=== PATIENT | male | born 1970 | race Caucasian/White ===

== ENCOUNTER 2019-12-26 08:35 | Outpatient (REF) | payer OTHER, SELFPAY ==
[2019-12-26 11:10] LABS: Alanine Aminotransferase 26 U/L (0-40); Albumin Level 4.5 g/dL (3.5-5.0); Alkaline Phosphatase 50 U/L (39-117); Anion Gap 16 (12-20); Aspartate Amino Transferase 27 U/L (5-37); Bilirubin Total 0.7 mg/dL (0.0-1.0); Blood Urea Nitrogen 16 mg/dL (9-16); Calcium 9.1 mg/dL (8.4-10.2); Carbon Dioxide 24 mmol/L (22-29); Chloride 104 mmol/L (96-108); Cholesterol 217 mg/dL; Estimated Glomerular Filt Rate > 60; Glucose Fasting 86 mg/dL (60-99); HDL Cholesterol 80 mg/dL; LDL Cholesterol Calculated 126 mg/dl; Potassium 4.7 mmol/l (3.3-5.1); Sodium 139 mmol/L (135-145); Total Protein 7.3 g/dL (6.5-8.0); Triglycerides 56 mg/dL
== END 2019-12-26 08:36 | disposition home or self-care (01) ==
LOC: HO.10HDL 08:35
PROVIDERS: Visit Provider Internal Medicine
DX: E11.9 Type 2 diabetes mellitus without complications (principal)
CPT/HCPCS: 80053; 80061

== ENCOUNTER 2022-02-18 08:13 | Outpatient (REF) | payer OTHER, SELFPAY ==
[2022-02-18 08:23] LABS: MANUAL DIFF FLAG NO
[2022-02-18 08:36] LABS: Basophils Absolute Auto 0.1 X10*3/uL (0.0-0.2); Basophils Percent Auto 0.5 % (0-2); Eosinophils Percent Auto 0.2 % (0-4); Hematocrit 43.9 % (42.0-52.0); Hemoglobin 14.6 g/dl (14.0-18.0); Imm Gran Abs Auto 0.03 X10*3/uL (0.00-0.03); Imm Gran Pct Auto 0.3 % (0.0-0.4); Lymphocytes Absolute Auto 0.8 X10*3/uL (1.2-4.9); Lymphocytes Percent Auto 7.5 % (20-40); Mean Corpuscular HGB Conc 33.3 g/dl (31.0-36.0); Mean Corpuscular Hemoglobin 32.1 pg (27.0-33.0); Mean Corpuscular Volume 96.5 fL (80.0-98.0); Mean Platelet Volume 9.5 fL (9.4-12.4); Monocytes Absolute Auto 0.5 X10*3/uL (0.1-1.2); Monocytes Percent Auto 4.4 % (2-11); Neutrophils Absolute Auto 9.2 x10*3/uL (2.0-8.3); Neutrophils Percent Auto 87.1 % (45-73); Platelet Count 299 X10*3/uL (160-400); Red Blood Count 4.55 X10*6/uL (4.60-5.80); Red Cell Distribution Width 12.9 % (11.0-16.0); White Blood Count 10.6 X10*3/uL (4.8-10.8)
[2022-02-18 09:17] LABS: Alanine Aminotransferase 15 U/L (0-40); Albumin Level 4.4 g/dL (3.5-5.0); Alkaline Phosphatase 65 U/L (39-117); Anion Gap 15 (12-20); Aspartate Amino Transferase 17 U/L (5-37); Bilirubin Total 0.9 mg/dL (0.0-1.0); Blood Urea Nitrogen 27 mg/dL (9-16); Carbon Dioxide 26 mmol/L (22-29); Chloride 106 mmol/L (96-108); Cholesterol 207 mg/dL; Estimated Glomerular Filt Rate 53; Glucose Fasting 119 mg/dL (60-99); HDL Cholesterol 75 mg/dL; LDL Cholesterol Calculated 122 mg/dl; Potassium 4.8 mmol/L (3.3-5.1); Sodium 142 mmol/L (135-145); Total Protein 7.3 g/dL (6.5-8.0); Triglycerides 54 mg/dL
== END 2022-02-18 08:14 | disposition home or self-care (01) ==
LOC: HO.LAB 08:13
PROVIDERS: PCP Internal Medicine; Visit Provider Internal Medicine
DX: Z00.00 Encounter for general adult medical examination without abnormal findings (principal); Z13.0 Encounter for screening for diseases of the blood and blood-forming organs and certain disorders involving the immune mechanism
CPT/HCPCS: 36415; 80053; 80061; 85025

== ENCOUNTER 2022-07-17 09:30 | Outpatient (REF) | payer OTHER, SELFPAY ==
--- NOTE | ~2022-07-17 | XR_ITS ---
EXAMINATION: XR KNEE, LEFT CLINICAL INFORMATION: Pain COMPARISON: None available. TECHNIQUE: Two views of the left knee. FINDINGS: Bone alignment is normal. No fracture or dislocation. Normal joint spaces. Small joint effusion. Small well-corticated ossification in the inferior patellar tendon. Question soft tissue swelling of the patellar tendon and overlying anterior soft tissues. XR/XR knee LT 2V IMPRESSION: Small joint effusion. Question soft tissue swelling of the patellar tendon and adjacent soft tissues.
== END 2022-07-17 09:31 | disposition home or self-care (01) ==
LOC: HO.XRAY 09:30
PROVIDERS: PCP Internal Medicine; Visit Provider Internal Medicine
DX: M25.562 Pain in left knee (principal)
CPT/HCPCS: 73560

== ENCOUNTER 2022-08-31 12:51 | Outpatient (REF) | payer OTHER, SELFPAY ==
--- NOTE | ~2022-08-31 | XR_ITS ---
EXAMINATION: XR KNEE, LEFT XR KNEE STANDING, BILATERAL CLINICAL INFORMATION: Left knee pain. COMPARISON: 07/17/2022 TECHNIQUE: AP bilateral standing view of the knees was obtained. [place] view of the left knee obtained. FINDINGS: LEFT KNEE: Tiny tricompartmental osteophytes. Joint spaces are preserved. Previously questioned soft tissue swelling of the left patellar tendon and adjacent soft tissues is difficult to evaluate today as lateral view was not obtained. RIGHT KNEE: Single AP view of the right knee demonstrate tiny medial marginal osteophytes. A 7 mm ossicle in the soft tissues of the proximal to mid right lower leg. Heterogeneous sclerotic lesion in the distal shaft of the right femur on a single view should be evaluated with dedicated views of the right femur. XR/XR knee standing BI IMPRESSION: 1. Tiny left tricompartmental osteophytes. 2. Previously questioned soft tissue swelling of the left patellar tendon and adjacent soft tissues is difficult to evaluate today as lateral view was not obtained. 3. Heterogeneous sclerotic lesion in the distal shaft of the right femur on a single view should be evaluated with dedicated views of the right femur.
--- NOTE | ~2022-08-31 | XR_ITS ---
EXAMINATION: XR KNEE, LEFT XR KNEE STANDING, BILATERAL CLINICAL INFORMATION: Left knee pain. COMPARISON: 07/17/2022 TECHNIQUE: AP bilateral standing view of the knees was obtained. [place] view of the left knee obtained. FINDINGS: LEFT KNEE: Tiny tricompartmental osteophytes. Joint spaces are preserved. Previously questioned soft tissue swelling of the left patellar tendon and adjacent soft tissues is difficult to evaluate today as lateral view was not obtained. RIGHT KNEE: Single AP view of the right knee demonstrate tiny medial marginal osteophytes. A 7 mm ossicle in the soft tissues of the proximal to mid right lower leg. Heterogeneous sclerotic lesion in the distal shaft of the right femur on a single view should be evaluated with dedicated views of the right femur. XR/XR knee LT 1V IMPRESSION: 1. Tiny left tricompartmental osteophytes. 2. Previously questioned soft tissue swelling of the left patellar tendon and adjacent soft tissues is difficult to evaluate today as lateral view was not obtained. 3. Heterogeneous sclerotic lesion in the distal shaft of the right femur on a single view should be evaluated with dedicated views of the right femur.
== END 2022-08-31 12:52 | disposition home or self-care (01) ==
LOC: HO.HOSX 12:51
PROVIDERS: Visit Provider Physician Assistant
DX: S83.8X2A Sprain of other specified parts of left knee, initial encounter (principal)
CPT/HCPCS: 73560; 73565

== ENCOUNTER 2022-08-31 14:01 | Outpatient (AMB) | payer OTHER, SELFPAY ==
--- NOTE | 2022-08-31 14:14 | MHC.OFFVIS ---
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 Patient reports doing cross fit and when he was jump roping her felt his knee crumbled. He states that his pain is on the lateral aspect of the knee and has a burning sensation. Pain is worse when using the stairs and walking. Allergies No Known Allergies Allergy (Verified 08/31/22 14:21) HPI PRODUCT MARKETING SPECIALIST-Left knee pain HPI Details 51-year-old male who presents in the office today, as a new patient, for an evaluation of left knee pain. The patient reports in 06/2022 he injured the left knee. He claims he was doing cross fit when he was jumping rope and he felt his knee crumble. He states his pain is on the lateral aspect of the left knee with a burning sensation. He states his pain is worse with use of stairs and ambulation. He states he has not been able to do any exercising with his left lower extremity. He states the pain has not decreased at all. Patient reports his pain is along the lateral joint line. Patient confirms attending 2 sessions of physical therapy. [facility] Medical History Family history of colon cancer Surgical History History of colonoscopy History of wisdom tooth extraction Family History Father Colon cancer Mother Hyperlipidemia Maternal Uncle CAD (coronary artery disease) Sister Uterine cancer Social History (Updated 08/31/22 @ 14:23 by Usha Babin) Housing: House Alcohol intake: never Patient Tobacco Use Status: Never used Tobacco Tobacco use type: Cigarette e-Cigarette/Vaping Use: Never Used Second Hand Smoke Exposure: No service: No Current occupational status: employed Current occupation: sedentary work/ right hand dominant Cognitive needs: No Hearing needs: No Vision needs: No Review of Systems Const All systems reviewed & are unremarkable except as noted in HPI and below Physical Exam Vital Signs: BMI result Body Mass Index 29.5 Const General: cooperative, healthy appearing, comfortable, no acute distress, well developed and alert Orientation/consciousness: patient oriented x3 HEENT Head: Yes normal to inspection, Yes normocephalic and Yes atraumatic Eyes General: appearance normal, both eyes and all related structures Resp Effort & Inspection: normal respiratory effort and able to speak in complete sentences Cardio Rate: regular rate Peripheral pulses: Peripheral pulses 2+ throughout GI Palpation (GI): Soft to palpation Skin Lesions: no lesions Rashes: no rashes Neuro General: patient oriented x3 Extrem Other: Left knee: Normal to inspection. No ecchymosis, erythema, or joint effusion. No tenderness to palpation to the medial line. Tenderness to palpation to the lateral joint line. Full knee extension and flexion. Negative Jean's. Negative anterior draw. NVI. Assessment & Plan Assessment & Plan (1) Injury of meniscus of left knee: Code(s): S83.8X2A - Sprain of other specified parts of left knee, initial encounter Plan Mr. Chand is a 51-year-old male who presents in the office today, as a new patient, for an evaluation of left knee pain. The patient reports in 06/2022 he injured the left knee. He claims he was doing cross fit when he was jumping rope and he felt his knee crumble. He states his pain is on the lateral aspect of the left knee with a burning sensation. He states his pain is worse with use of stairs and ambulation. He states he has not been able to do any exercising with his left lower extremity. He states the pain has not decreased at all. Patient reports his pain is along the lateral joint line. Patient confirms attending 2 sessions of physical therapy. The patient will continue to work with physical therapy. I will place an order for an MRI for further evaluation and treatment. Follow up will be via telehealth once the MRI results have been review, or sooner if needed. X-rays of the left knee which were obtained while in the office today and were reviewed by me, Leesa Gonzáles PA-C, revealed no evidence of acute fractures or dislocation. Orders: Orders XR knee LT 1V 08/31/22 M25.569 - Pain in unspecified knee XR knee standing BI 08/31/22 M25.569 - Pain in unspecified knee MR knee LT wo con 08/31/22 S83.8X2A - Sprain of other specified parts of left knee, initial encounter Patient Instructions: Scribed for Leesa Gonzáles PA-C by Rosalinda El medical doctor nuclear medicine, on 08/31/2022 at 2:04 pm, EST. Your attestation Coding Level of Care Code New Pt Level 4 (89209) Diagnoses Injury of meniscus of left knee S83.8X2A
[2022-08-31 14:23] VITALS: BMI 29.5
== END 2022-08-31 14:58 | disposition home or self-care (01) ==
PROVIDERS: PCP Internal Medicine; Visit Provider Physician Assistant
DX: S83.8X2A Sprain of other specified parts of left knee, initial encounter (principal)
CPT/HCPCS: 99204

== ENCOUNTER 2022-09-18 10:12 | Day surgery (SDC) | payer OTHER, SELFPAY ==
--- NOTE | 2022-09-17 12:12 | HO.ANESPROP2 ---
HPI - Anesthesia Eval Consult details Narrative: 51yo M for Colonoscopy PMFSH Active Problems Active Problems: All Active Problems (Updated 08/31/22 @ 14:39 by Leesa Gonzáles PA-C) Injury of meniscus of left knee (Acute) Encounter for vasectomy counseling (Acute) Family history of colon cancer (Acute) Physical exam (Acute) Past Medical History Medical History Family history of colon cancer Family History Family History Father Colon cancer Mother Hyperlipidemia Maternal Uncle CAD (coronary artery disease) Sister Uterine cancer Surgical History Surgical History History of colonoscopy History of wisdom tooth extraction Social History Social History (Updated 08/31/22 @ 14:23 by Usha Babin) Housing: House Alcohol intake: never Patient Tobacco Use Status: Never used Tobacco Tobacco use type: Cigarette e-Cigarette/Vaping Use: Never Used Second Hand Smoke Exposure: No service: No Current occupational status: employed Current occupation: sedentary work/ right hand dominant Cognitive needs: No Hearing needs: No Vision needs: No Meds Allergies Allergy/AdvReac Type Severity Reaction Status Date / Time No Known Allergies Allergy Verified 08/31/22 14:21 Home Medications Medication Instructions Recorded Confirmed Last Taken Type No Known Home Meds 12/28/19 02/25/22 Unknown History Exam Exam Date and Time: September 17, 2022 1212 Assessment and Plan Assessment Anesthesia Assessment: Chart Reviewed
--- NOTE | 2022-09-18 10:09 | HO.ANESPROP2 ---
[facility] Active Problems Active Problems: All Active Problems (Updated 08/31/22 @ 14:39 by Leesa Gonzáles PA-C) Physical exam (Acute) Encounter for vasectomy counseling (Acute) Injury of meniscus of left knee (Acute) Family history of colon cancer (Acute) Past Medical History Medical History Family history of colon cancer Family History Family History Father Colon cancer Mother Hyperlipidemia Maternal Uncle CAD (coronary artery disease) Sister Uterine cancer Surgical History Surgical History (Updated 09/17/22 @ 12:53 by Geneva Jean RN) History of colonoscopy History of wisdom tooth extraction Hx of vasectomy Social History Social History (Updated 08/31/22 @ 14:23 by Usha Babin) Housing: House Alcohol intake: never Patient Tobacco Use Status: Never used Tobacco Tobacco use type: Cigarette e-Cigarette/Vaping Use: Never Used Second Hand Smoke Exposure: No service: No Current occupational status: employed Current occupation: sedentary work/ right hand dominant Cognitive needs: No Hearing needs: No Vision needs: No Meds Allergies Allergy/AdvReac Type Severity Reaction Status Date / Time No Known Allergies Allergy Verified 08/31/22 14:21 Active Medications: Current Medications Ondansetron HCl (Ondansetron Hcl 4 Mg/2 Ml Vial) 4 mg IVPUSH ONCE PRN PRN Reason: Nausea and Vomiting Home Medications Medication Instructions Recorded Confirmed Last Taken Type Fish Oil PO DAILY 09/17/22 Unknown History vitamin B complex 1 cap PO DAILY 09/17/22 09/17/22 Unknown History Exam Exam Date and Time: September 18, 2022 1006
--- NOTE | 2022-09-18 10:14 | P.CONAN_ITS ---
[facility] Active Problems Active Problems: All Active Problems (Updated 08/31/22 @ 14:39 by Leesa Gonzáles PA-C) Physical exam (Acute) Encounter for vasectomy counseling (Acute) Injury of meniscus of left knee (Acute) Family history of colon cancer (Acute) Past Medical History Medical History Family history of colon cancer Family History Family History Father Colon cancer Mother Hyperlipidemia Maternal Uncle CAD (coronary artery disease) Sister Uterine cancer Family history of problems with anesthesia: No Surgical History Surgical History (Updated 09/17/22 @ 12:53 by Geneva Jean RN) History of colonoscopy History of wisdom tooth extraction Hx of vasectomy History of Problems with Anesthesia: No Social History Social History (Updated 08/31/22 @ 14:23 by Usha Babin) Housing: House Alcohol intake: never Patient Tobacco Use Status: Never used Tobacco Tobacco use type: Cigarette e-Cigarette/Vaping Use: Never Used Second Hand Smoke Exposure: No service: No Current occupational status: employed Current occupation: sedentary work/ right hand dominant Cognitive needs: No Hearing needs: No Vision needs: No Meds Allergies Allergy/AdvReac Type Severity Reaction Status Date / Time No Known Allergies Allergy Verified 09/18/22 10:45 Active Medications: Current Medications Ondansetron HCl (Ondansetron Hcl 4 Mg/2 Ml Vial) 4 mg IVPUSH ONCE PRN PRN Reason: Nausea and Vomiting Home Medications Medication Instructions Recorded Confirmed Last Taken Type Fish Oil PO DAILY 09/17/22 09/16/22 History vitamin B complex 1 cap PO DAILY 09/17/22 09/17/22 09/16/22 History Exam Exam Date and Time: September 18, 2022 1014 Airway Mallampati Class: III TM Dist: >3cm Neck ROM: Full Loose/Missing/Broken Teeth: No (rrr) Lungs: clear Assessment and Plan Final Anesthetic Review Family History of Problems with Anesthesia: No History of Problems with Anesthesia: No NPO: Yes ASA Class: I Final Preanesthetic Review: No Changes in Pt Med Stat, Meds/Allgs Chart Reviewed, Consent Obtained/Reviewed and Anes Risks/Benef Reviewed Patient Risk: Low Procedure Risk: Low Anesthetic Plan Anesthetic Plan: MAC: Disposition: Standard PACU
[2022-09-18 10:47] VITALS: BMI 28.4
[2022-09-18 11:05] VITALS: BP 131/91; PULSE 62; RESP 15; TEMP 36.6; O2SAT 98
[2022-09-18] MEDS: Lactated Ringers 1,000 ML 100 ML IVCONT (11:10)
[2022-09-18 12:14] VITALS: BP 120/69; PULSE 81; RESP 17; TEMP 36.5; O2SAT 98
--- NOTE | 2022-09-18 12:14 | P.BOP_ITS ---
Brief Operative Note Date of Service: 09/18/22 Pre-op diagnosis: Screening Post-op diagnosis: other (Diverticulosis) Procedure: Colonoscopy to the cecum Surgeon: Hardik Dukes Anesthesia: MAC Was an Crew Leader/Control Room Operator used for this Procedure?: No Estimated blood loss (mL): 0 Pathology: none sent Condition: stable Disposition: PACU
[2022-09-18 12:30] VITALS: BP 112/63; PULSE 58; RESP 16; O2SAT 98
--- NOTE | 2022-09-18 12:35 | OP_ITS ---
DATE OF SERVICE: 09/18/2022 SURGEON: Hardik Dukes MD INDICATIONS: The patient presents for evaluation of colorectal cancer screening and family history of colon cancer. Full consent has been obtained from him for this, including risks of bleeding and perforation. PREOPERATIVE DIAGNOSIS: Colorectal cancer screening and family history of colon cancer. POSTOPERATIVE DIAGNOSIS: PROCEDURE PERFORMED: Colonoscopy to the cecum. ESTIMATED BLOOD LOSS: COMPLICATIONS: ANESTHESIA: Monitored anesthesia care. ASSISTANTS: SPECIMENS: POSTOPERATIVE DIAGNOSES: Colorectal cancer screening and family history of colon cancer, mild sigmoid diverticulosis, small internal hemorrhoids. DESCRIPTION OF PROCEDURE: The patient was placed in the left lateral decubitus position. The digital rectal exam revealed no abnormalities. The Olympus video pediatric colonoscope was entered into the rectum and advanced easily to the cecum. Once in the cecum, I did identify normal-appearing cecal pouch with appendiceal orifice and a normal-appearing ileocecal valve. The entire cecum and ileocecal valve appeared normal. The scope was slowly withdrawn assessing all mucosal surfaces carefully. Preparation was excellent. I did not visualize any sign of polyps, colitis, nor angiodysplasia. There was a mild amount of sigmoid diverticulosis. In the rectum, scope was retroflexed visualizing small internal hemorrhoids, but no other pathology. The rectal mucosa appeared normal. The scope was straightened and withdrawn from the patient. He tolerated the procedure well and was returned to the recovery area in stable condition. IMPRESSION: 1. Mild sigmoid diverticulosis. 2. Small internal hemorrhoids. PLAN: I would recommend a repeat colonoscopy in 5 years for further screening given the family history of colon cancer in his father in his 50s. He will otherwise see me on a p.r.n. basis. MD DANNY Aguilar/VISHNU / [phone]
[2022-09-18 12:46] VITALS: BP 128/79; PULSE 58; RESP 16; TEMP 36.3; O2SAT 98
== END 2022-09-18 13:25 | disposition home or self-care (01) ==
PROVIDERS: PCP Internal Medicine; Visit Provider Internal Medicine
PROC: 0DJD8ZZ Inspection of Lower Intestinal Tract, Via Natural or Artificial Opening Endoscopic (ICD-10-PCS; CPT 45378; principal; 2022-09-18 11:30)
DX: Z12.11 Encounter for screening for malignant neoplasm of colon (principal); Z80.0 Family history of malignant neoplasm of digestive organs; Z83.71 Family history of colonic polyps; K57.30 Diverticulosis of large intestine without perforation or abscess without bleeding; K64.8 Other hemorrhoids; Z98.52 Vasectomy status
CPT/HCPCS: 45378; J2250

== ENCOUNTER 2023-07-23 09:08 | Outpatient (AMB) | payer OTHER, SELFPAY ==
--- NOTE | 2023-07-23 09:09 | MHC.PC.OV ---
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 [place]: Not Required per policy Accompanied by: Self / Same As Patient Allergies No Known Allergies Allergy (Verified 07/23/23 09:11) Medication List - Last Reconciled 07/23/23 by Fadi Ingram MD [Fish Oil PO DAILY] vitamin B complex 1 cap PO DAILY Tobacco use date assessed: 07/23/23 Dental Screening Dental Screen Date: 07/23/23 Did you have a dental visit in the last 12 months?: Yes Did you have a dental problem in the last 6 months where you did not have access to dental care?: No Was dental information given to patient?: Patient has dentist HPI Annual Exam HPI Details healthy [facility] Medical History Family history of colon cancer Surgical History Hx of vasectomy History of colonoscopy History of wisdom tooth extraction Family History Father Colon cancer Mother Hyperlipidemia Maternal Uncle CAD (coronary artery disease) Sister Uterine cancer Social History (Updated 08/31/22 @ 14:23 by Usha Babin) Housing: House Alcohol intake: never Patient Tobacco Use Status: Never used Tobacco Tobacco use type: Cigarette e-Cigarette/Vaping Use: Never Used Second Hand Smoke Exposure: No service: No Current occupational status: employed Current occupation: sedentary work/ right hand dominant Cognitive needs: No Hearing needs: No Vision needs: No Questionnaire PHQ-9 Over the last 2 weeks, how often have you been bothered by any of the following problems? 1. Little interest or pleasure in doing things: not at all 2. Feeling down, depressed, or hopeless: not at all 3. Trouble falling or staying asleep, or sleeping too much: not at all 4. Feeling tired or having little energy: not at all 5. Poor appetite or overeating: not at all 6. Feeling bad about yourself - or that you are a failure or have let yourself or your family down: not at all 7. Trouble concentrating on things, such as reading the newspaper or watching television: not at all 8. Moving or speaking so slowly that other people could have noticed. Or the opposite - being so fidgety or restless that you have been moving around a lot more than usual: not at all 9. Thoughts that you would be better off or of hurting yourself in some way: not at all Total score: 0 Depression Screening Interpretation: Negative Depression Screening Done: Yes 88953 - PHQ-9 Billing: Yes Source: Developed by Drs. Hardik Shukla, Doreen Abebe, Horacio Haro and colleagues, with an educational rupal from [employer]. Thrive Questionnaire Date Thrive assessed: 07/23/23 I am a: Patient What is your living situation today?: I have a steady place to live Within the past 12 months, did the food you bought not last and you didn't have the money to get more?: Never true Within the past 12 months, did you worry whether your food would run out before you got money to buy more?: Never true Do you have trouble paying for medicines?: No Do you have trouble getting transportation to medical appointments?: No Do you have trouble paying your heating and electricity bill?: No Do you have trouble taking care of your child, family member or friend?: No Do you have trouble with day-to-day activities such as bathing, preparing meals, shopping, managing finances, etc.?: No Are you currently unemployed and looking for a job?: No Are you interested in more education?: No Please select the resources that you would like help with: None THRIVE Score: 0 AUDIT C Alcohol Use Questionnaire (AUDIT-C) 1. How often do you have a drink containing alcohol?: 2-3 times a week 2. How many drinks containing alcohol do you have on a typical day when you are drinking?: 1 or 2 3. How often do you have six or more drinks on one occasion?: Never Total Score: 3 Score Reviewed/Action Taken: Yes KATELIN-7 AMB Questionnaire KATELIN-7 Date KATELIN - 7 assessed: 07/23/23 Feeling nervous, anxious, or on edge: 0 = Not at all Not being able to stop or control worryin = Not at all Worrying too much about different things: 0 = Not at all Trouble relaxin = Not at all Being so restless that it is hard to sit still: 0 = Not at all Becoming easily annoyed or irritable: 0 = Not at all Feeling afraid as if something awful might happen: 0 = Not at all Total KATELIN-7 score (0-4 normal; 5-9 mild; 10-14 moderate; 15-21 severe): 0 Source: Developed by Drs. Hardik Shukla, Doreen Abebe, Horacio Haro and colleagues, with an educational rupal from [employer]. Review of Systems Const Denies chills, Denies fatigue, Denies headache(s) and Denies weight loss Eyes Denies change in vision, Denies diplopia and Denies eye pain ENT Denies vertigo, Denies dizziness, Denies headache(s) and Denies nasal discharge Card Denies chest pain, Denies rapid heart rate and Denies dyspnea on exertion Resp Denies chest congestion, Denies cough, Denies pain with cough and Denies dyspnea on exertion GI Denies abdominal pain, Denies hematochezia and Denies change in bowel habits Musc Denies myalgias, Denies arthralgias and Denies joint swelling Skin/Breast Denies lesions and Denies unusual bruising Neuro Denies vertigo, Denies dizziness, Denies headache(s) and Denies focal weakness Endo Denies fatigue Physical exam (Primary Care) Vital Signs: Last Vital Signs Pulse 50 07/23/23 09:11 BP 118/80 07/23/23 09:11 Pulse Ox 98 07/23/23 09:11 Oxygen Delivery Method Room Air 07/23/23 09:11 BMI result Body Mass Index 30.4 Tobacco/Smoking Status: Tobacco use Status Tobacco use date assessed 07/23/23 07/23/23 09:16 Patient Tobacco Use Status Never used Tobacco 07/23/23 09:16 Tobacco use type Cigarette 07/23/23 09:16 e-Cigarette/Vaping Use Never Used 07/23/23 09:16 PHQ-9: PHQ-9 Score PHQ-9: Total score 0 07/23/23 09:16 Depression Screening Interpretation: Negative Thrive Assessment: Date of Thrive Assessment Date Thrive assessed 06/14/24 06/14/24 09:16 Const General: cooperative, healthy appearing and no acute distress Orientation/consciousness: oriented to person, oriented to place and oriented to time HENMT Head: Yes normal to inspection, Yes normocephalic and Yes atraumatic Mouth: Normal oral and palatal mucosa present and tongue normal Throat: Yes posterior oropharynx normal and Yes uvula midline Eyes General: appearance normal, both eyes and all related structures Neck Neck: Yes normal visual inspection, Yes full ROM and Yes no lymphadenopathy Thyroid: Thyroid normal Carotids: normal carotid upstroke Chest Chest palpation & inspection: normal inspection of the chest Resp Effort & Inspection: normal respiratory effort and able to speak in complete sentences Auscultation: clear to auscultation bilaterally Cardio Jugular venous distension: no JVD Palpation: normal PMI Rate: regular rate Rhythm: regular rhythm Heart sounds: S1 normal heart sound present and S2 normal heart sound present GI Inspection: Yes normal to inspection Palpation (GI): Soft to palpation and No hepatosplenomegaly present Auscultation: normal bowel sounds General: Yes no CVA tenderness Back/Spine/Pelvis Back: no CVA tenderness Skin General skin exam: no rashes or lesions noted Neuro General: oriented to person, oriented to place and oriented to time Extrem General: Yes normal to inspection and Yes full ROM Assessment and Plan Assessment & Plan (1) Physical exam: Code(s): Z00.00 - Encounter for general adult medical examination without abnormal findings Plan: stable; do labs Orders: Orders Prostate Specific Antigen Scr Today Z00.00 - Encounter for general adult medical examination without abnormal findings Lipid Panel Today Z13.220 - Encounter for screening for lipoid disorders Complete Blood Count Auto Diff Today Z13.0 - Encounter for screening for diseases of the blood and blood-forming organs and certain disorders involving the immune mechanism Comprehensive [place]. Panel Fast Today Z13.9 - Encounter for screening, unspecified Coding Level of Care Code Est Pt Prev Care 40-64y(57803) Diagnoses Physical exam Z00.00
[2023-07-23 09:11] VITALS: BP 118/80; PULSE 50; O2SAT 98; BMI 30.4
== END 2023-07-23 09:26 | disposition home or self-care (01) ==
PROVIDERS: PCP Internal Medicine; Visit Provider Internal Medicine
DX: Z00.00 Encounter for general adult medical examination without abnormal findings (principal)
CPT/HCPCS: 99396